=== PATIENT | female | born 1990 | race Caucasian/White ===

== ENCOUNTER 2017-03-11 07:27 | Day surgery (SDC) | payer OTHER ==
[~2017-03-11] VITALS: Ht 162.6 cm; Wt 60.3 kg
[2017-03-11] MEDS ORDERED: LR 1,000 ML IV ONE (07:30)
[2017-03-11] MEDS ORDERED: VITA500C14 PO (07:59)
[2017-03-11 08:02] LABS: MEAN CORPUSCULAR HEMOGLOBIN 31.2 pg (27.0-33.0); MEAN CORPUSCULAR HGB CONC 33.9 g/dl (32.0-36.5); MEAN CORPUSCULAR VOLUME 91.9 fl (80.0-96.0); RED CELL DISTRIBUTION WIDTH 12.2 % (11.5-14.5); WHITE BLOOD COUNT 8.9 K/mm3 (4.0-10.0)
[2017-03-11 08:11] LABS: CONTROL LINE HCG INT CTR LINE PRESENT
[2017-03-11] MEDS ORDERED: ONDANSETRON 4MG/2ML VIAL (J2405) As Ordered ONE (08:12)
[2017-03-11] MEDS ORDERED: NEOSTIGMINE 1MG/ML 5 ML SYRINGE (J2710) As Ordered ONE (08:12)
[2017-03-11] MEDS ORDERED: dexameTHASONE 4 MG/ML 1ML VIAL (J1100) As Ordered ONE (08:12)
[2017-03-11] MEDS ORDERED: PROPOFOL 200 MG/20 ML VIAL As Ordered ONE (08:12)
[2017-03-11] MEDS ORDERED: LIDOCAINE 2% INJ 100 MG/5 ML SDV (FOR ANES.) As Ordered ONE (08:12)
[2017-03-11] MEDS ORDERED: GLYCOPYRROLATE INJ 0.2 MG/ML 2 ML VIAL As Ordered ONE (08:12)
[2017-03-11] MEDS ORDERED: ROCURONIUM BROMIDE 50 MG/5 ML VIAL/SYRINGE As Ordered ONE (08:12)
[2017-03-11] MEDS ORDERED: fentaNYL 100 MCG/2 ML INJECTION (J3010) As Ordered ONE (08:12)
[2017-03-11] MEDS ORDERED: MIDAZOLAM INJ 2 MG/2 ML VIAL (J2250) As Ordered ONE (08:14)
[2017-03-11] MEDS ORDERED: LIDOCAINE 1% SDV INJ 30 ML VIAL As Ordered ONE (08:59)
[2017-03-11] MEDS ORDERED: SILVER NITRATE APPLICATOR As Ordered ONE (08:59)
[2017-03-11] MEDS ORDERED: ONDANSETRON 4MG/2ML VIAL (J2405) IV PRN (10:30)
[2017-03-11] MEDS ORDERED: PERCOCET 5MG/325MG TAB PO PRN (10:30)
[2017-03-11] MEDS ORDERED: fentaNYL 100 MCG/2 ML INJECTION (J3010) IV PRN (10:30)
[2017-03-11] MEDS ORDERED: LR 1,000 ML IV SCH ×2 (10:30)
[2017-03-11 11:15] VITALS: BP 119/78
== END 2017-03-11 11:20 | disposition home or self-care (01) ==
LOC: M SDC 07:27
PROVIDERS: ATTEND Obstetrics & Gynecology
DX: N84.0 Polyp of corpus uteri (principal)
CPT/HCPCS: 36415; 58558; 84703; 85027; 86850; 86900; 86901; 88305; J1100; J2250; J2405; J3010